=== PATIENT | female | born 1965 | race Caucasian/White ===

== ENCOUNTER 2019-04-27 03:58 | Inpatient (IN) | payer OTHER ==
[2019-04-27 04:13] LABS: URINE BLOOD (Dip) POC Negative (NEGATIVE); URINE GLUCOSE (Dip) POC Negative (NEGATIVE); URINE KETONES (Dip) POC Negative (NEGATIVE); URINE LEUKOCYTE EST (Dip) POC Negative (NEGATIVE); URINE NITRITE (Dip) POC Negative (NEGATIVE); URINE TOTAL PROTEIN POC Negative (NEGATIVE)
[2019-04-27 04:13] LABS: URINE PH (Dip) POC 8.5 (5.0-8.5)
[2019-04-27] MEDS: ONDANSETRON 4 MG INJ IV (04:25)
[2019-04-27] MEDS: morphine 2 MG INJ IV ×3 (04:25→08:54)
[2019-04-27 04:36] LABS: ADD MAN DIFF? NO
[2019-04-27 04:37] LABS: BASOPHILS % 0.5 % (0.0-2.0); EOSINOPHILS # 0.1 10^3/ul (0.0-0.5); EOSINOPHILS % 2.1 % (0.0-7.0); HEMATOCRIT 40.2 % (37.0-47.0); LYMPHOCYTES # 2.7 10^3/ul (0.8-2.9); LYMPHOCYTES % 40.8 % (15.0-51.0); MEAN CORPUSCULAR HEMOGLOBIN 30.1 pg (29.0-33.0); MEAN CORPUSCULAR HGB CONC 32.3 g/dl (32.0-37.0); MEAN CORPUSCULAR VOLUME 93.1 fl (82.0-101.0); MEAN PLATELET VOLUME 10.1 fl (7.4-10.4); MONOCYTE # 0.5 10^3/ul (0.3-0.9); MONOCYTES % 7.3 % (0.0-11.0); NEUTROPHIL # 3.3 10^3/ul (1.6-7.5); NEUTROPHILS % 49.1 % (39.0-77.0); PLATELET COUNT 347 10^3/UL (140-415); RED BLOOD COUNT 4.32 10^6/ul (4.20-5.40); RED CELL DISTRIBUTION WIDTH 12.8 % (11.5-14.5)
[2019-04-27 04:37] LABS: WHITE BLOOD COUNT 6.6 10^3/ul (4.8-10.8)
[2019-04-27 04:54] LABS: ALANINE AMINOTRANSFERASE 83 IU/L (13-69); ALBUMIN 4.3 g/dl (3.3-4.9); ALBUMIN/GLOBULIN RATIO 1.26; ALKALINE PHOSPHATASE 96 IU/L (42-121); ANION GAP 11 (5-13); ASPARTATE AMINO TRANSFERASE 94 IU/L (15-46); BILIRUBIN,INDIRECT 0.4 mg/dl (0-1.1); BILIRUBIN,TOTAL 0.4 mg/dl (0.2-1.3); BLOOD UREA NITROGEN 21 mg/dl (7-20); CALCIUM 9.3 mg/dl (8.4-10.2); CARBON DIOXIDE 26 mmol/L (21-31); CHLORIDE 108 mmol/L (97-110); CREATININE 0.56 mg/dl (0.44-1.00); Estimated GFR > 60 mL/min (>60); GLUCOSE 110 mg/dl (70-220); POTASSIUM 3.4 mmol/L (3.5-5.1); SODIUM 145 mmol/L (135-144); TOTAL PROTEIN 7.7 g/dl (6.1-8.1)
[2019-04-27] MEDS: SOD CHLORIDE 0.9% 1,000 ML IV ×6 (04:59→23:40)
[2019-04-27 05:23] LABS: LIPASE 10488 U/L (23-300)
[2019-04-27] MEDS: POTASSIUM CHLORIDE 100 ML IVPB (05:52)
[2019-04-27] MEDS: METOCLOPRAMIDE 10 MG INJ IV (05:52)
[2019-04-27] MEDS: HYDROmorphONE 1 MG/ML SYG IV ×3 (05:53→19:37)
[2019-04-27] MEDS ORDERED: BISACODYL (EC) 5 MG TAB PO (06:00)
[2019-04-27] MEDS ORDERED: NACL 0.9% 3 ML SYG IV (06:00)
[2019-04-27] MEDS ORDERED: DOCUSATE SODIUM 100 MG CAP PO (06:00)
[2019-04-27] MEDS ORDERED: ACETAMINOPHEN 325 MG TAB PO (06:00)
[2019-04-27 06:28] LABS: HAAIG REFLEX REFLEX FILED
[2019-04-27] MEDS: POTASSIUM CHLORIDE (SR) 20 MEQ TAB PO (06:45)
[2019-04-27 06:51] LABS: INR 0.89; PROTIME 12.1 Sec (11.9-14.9); PT RATIO 0.9
[2019-04-27 06:52] LABS: PARTIAL THROMBOPLASTIN TIME 30.3 Sec (23.0-35.0)
[2019-04-27 06:57] LABS: ETHANOL < 10.0 mg/dl (0-0)
[2019-04-27] MEDS ORDERED: ALBUTEROL HFA 8 GM INHALER INH (07:00)
[2019-04-27 07:13] LABS: CHOLESTEROL 136 mg/dl (100-200)
[2019-04-27 07:13] LABS: CHOL/HDL RATIO 3.6 RATIO; HDL CHOLESTEROL 37 mg/dl (37-92); LDL CHOLESTEROL,CALCULATED 85 mg/dl; TRIGLYCERIDES 71 mg/dl (0-149)
[2019-04-27 07:28] LABS: HEPATITIS B SURFACE ANTIGEN NEGATIVE (NEGATIVE)
[2019-04-27 07:46] LABS: HEPATITIS B CORE ANTIBODY NEGATIVE (NEGATIVE); HEPATITIS C VIRAL ANTIBODY NEGATIVE (NEGATIVE)
[2019-04-27] MEDS: LOSARTAN 50 MG TAB PO (08:53)
[2019-04-27] MEDS: PANTOPRAZOLE (EC) 40 MG TAB PO (08:53)
[2019-04-27] MEDS ORDERED: RANITIDINE 150 MG TAB PO (09:00)
[2019-04-27] MEDS ORDERED: NON-FORMULARY/PATIENT OWN MED (Omeprazole* 40 MG) PO (09:00)
[2019-04-28] MEDS: HYDROmorphONE 1 MG/ML SYG IV ×2 (04:48→19:18)
[2019-04-28] MEDS: SOD CHLORIDE 0.9% 1,000 ML IV ×5 (04:48→22:45)
[2019-04-28 05:01] LABS: ADD MAN DIFF? NO
[2019-04-28 05:15] LABS: BASOPHILS % 0.2 % (0.0-2.0); EOSINOPHILS # 0.1 10^3/ul (0.0-0.5); HEMATOCRIT 32.4 % (37.0-47.0); HEMOGLOBIN 10.6 g/dl (12.0-16.0); LYMPHOCYTES # 1.3 10^3/ul (0.8-2.9); LYMPHOCYTES % 22.3 % (15.0-51.0); MEAN CORPUSCULAR HEMOGLOBIN 30.9 pg (29.0-33.0); MEAN CORPUSCULAR HGB CONC 32.7 g/dl (32.0-37.0); MEAN CORPUSCULAR VOLUME 94.5 fl (82.0-101.0); MEAN PLATELET VOLUME 10.3 fl (7.4-10.4); MONOCYTE # 0.4 10^3/ul (0.3-0.9); MONOCYTES % 6.4 % (0.0-11.0); NEUTROPHILS % 69.8 % (39.0-77.0); PLATELET COUNT 267 10^3/UL (140-415); RED BLOOD COUNT 3.43 10^6/ul (4.20-5.40); RED CELL DISTRIBUTION WIDTH 13.1 % (11.5-14.5)
[2019-04-28 05:15] LABS: WHITE BLOOD COUNT 5.8 10^3/ul (4.8-10.8)
[2019-04-28 05:25] LABS: HEMOGLOBIN A1C 5.7 % (0-5.9)
[2019-04-28 05:58] LABS: THYROID STIMULATING HORMONE 0.743 MIU/L (0.465-4.680)
[2019-04-28] MEDS: PANTOPRAZOLE (EC) 40 MG TAB PO (06:00)
[2019-04-28 06:25] LABS: ALANINE AMINOTRANSFERASE 173 IU/L (13-69); ALBUMIN 3.1 g/dl (3.3-4.9); ALKALINE PHOSPHATASE 94 IU/L (42-121); ANION GAP 5 (5-13); ASPARTATE AMINO TRANSFERASE 87 IU/L (15-46); BILIRUBIN,INDIRECT 0.8 mg/dl (0-1.1); BILIRUBIN,TOTAL 0.8 mg/dl (0.2-1.3); BLOOD UREA NITROGEN 8 mg/dl (7-20); CALCIUM 8.3 mg/dl (8.4-10.2); CARBON DIOXIDE 20 mmol/L (21-31); CHLORIDE 116 mmol/L (97-110); CREATININE 0.47 mg/dl (0.44-1.00); Estimated GFR > 60 mL/min (>60); GLUCOSE 94 mg/dl (70-220); POTASSIUM 3.6 mmol/L (3.5-5.1); SODIUM 141 mmol/L (135-144); TOTAL PROTEIN 5.9 g/dl (6.1-8.1)
[2019-04-28 07:44] LABS: LIPASE 5061 U/L (23-300)
[2019-04-28] MEDS: LOSARTAN 50 MG TAB PO (08:37)
[2019-04-28] MEDS ORDERED: IOHEXOL 300MG/ML 30 ML BTL (11:12)
[2019-04-28] MEDS ORDERED: CEFAZOLIN 1 GM/50 ML (PMX) 50 ML IVPB (12:30)
[2019-04-28] MEDS ORDERED: MIDAZOLAM 1 MG/ML 2 ML INJ (12:34)
[2019-04-28] MEDS ORDERED: FENTAnyl 50 MCG/ML VIAL (12:34)
[2019-04-28] MEDS ORDERED: ROCURONIUM 50 MG INJ (13:48)
[2019-04-28] MEDS ORDERED: PROPOFOL 20 ML (13:48)
[2019-04-28] MEDS ORDERED: LIDOCAINE 2% (SDV) 5 ML INJ (13:48)
[2019-04-28] MEDS ORDERED: ONDANSETRON 4 MG INJ (13:48)
[2019-04-28] MEDS ORDERED: NEOSTIGMINE 3 MG/3 ML SYRINGE (13:52)
[2019-04-28] MEDS ORDERED: GLYCOPYRROLATE 0.4 MG INJ (13:52)
[2019-04-28 15:08] LABS: CARCINOEMBRYONIC ANTIGEN 1.9 ng/ml (0.0-5.0)
[2019-04-28 15:12] LABS: ALPHA FETOPROTEIN 5.27 IU/L (0.00-7.21)
[2019-04-28 15:12] LABS: CANCER ANTIGEN 19-9 15.9 U/ml (0.0-37.0)
[2019-04-28] MEDS: INDOMETHACIN 50 MG SUPP PR (20:58)
[2019-04-29] MEDS: SOD CHLORIDE 0.9% 1,000 ML IV ×7 (02:38→22:32)
[2019-04-29 05:13] LABS: ADD MAN DIFF? NO
[2019-04-29 05:23] LABS: BASOPHILS % 0.4 % (0.0-2.0); EOSINOPHILS % 0.7 % (0.0-7.0); HEMATOCRIT 32.1 % (37.0-47.0); HEMOGLOBIN 10.1 g/dl (12.0-16.0); LYMPHOCYTES # 1.3 10^3/ul (0.8-2.9); LYMPHOCYTES % 22.8 % (15.0-51.0); MEAN CORPUSCULAR HEMOGLOBIN 29.8 pg (29.0-33.0); MEAN CORPUSCULAR HGB CONC 31.5 g/dl (32.0-37.0); MEAN CORPUSCULAR VOLUME 94.7 fl (82.0-101.0); MEAN PLATELET VOLUME 10.6 fl (7.4-10.4); MONOCYTE # 0.4 10^3/ul (0.3-0.9); MONOCYTES % 7.4 % (0.0-11.0); NEUTROPHIL # 3.9 10^3/ul (1.6-7.5); NEUTROPHILS % 68.3 % (39.0-77.0); PLATELET COUNT 256 10^3/UL (140-415); RED BLOOD COUNT 3.39 10^6/ul (4.20-5.40); RED CELL DISTRIBUTION WIDTH 12.9 % (11.5-14.5)
[2019-04-29 05:23] LABS: WHITE BLOOD COUNT 5.7 10^3/ul (4.8-10.8)
[2019-04-29 05:44] LABS: ALANINE AMINOTRANSFERASE 108 IU/L (13-69); ALBUMIN 2.9 g/dl (3.3-4.9); ALKALINE PHOSPHATASE 96 IU/L (42-121); ANION GAP 9 (5-13); ASPARTATE AMINO TRANSFERASE 34 IU/L (15-46); BILIRUBIN,INDIRECT 0.4 mg/dl (0-1.1); BILIRUBIN,TOTAL 0.4 mg/dl (0.2-1.3); BLOOD UREA NITROGEN 7 mg/dl (7-20); CARBON DIOXIDE 19 mmol/L (21-31); CHLORIDE 117 mmol/L (97-110); Estimated GFR > 60 mL/min (>60); GLUCOSE 73 mg/dl (70-220); POTASSIUM 3.2 mmol/L (3.5-5.1); SODIUM 145 mmol/L (135-144); TOTAL PROTEIN 5.8 g/dl (6.1-8.1)
[2019-04-29 06:09] LABS: LIPASE 1622 U/L (23-300)
[2019-04-29] MEDS: PANTOPRAZOLE (EC) 40 MG TAB PO (06:55)
[2019-04-29] MEDS: LOSARTAN 50 MG TAB PO (08:25)
[2019-04-29] MEDS: POTASSIUM CHLORIDE (SR) 20 MEQ TAB PO (08:25)
[2019-04-29] MEDS: HYDROmorphONE 1 MG/ML SYG IV (20:31)
[2019-04-30] MEDS: SOD CHLORIDE 0.9% 1,000 ML IV ×5 (02:24→19:19)
[2019-04-30] MEDS: HYDROmorphONE 1 MG/ML SYG IV ×4 (03:30→22:36)
[2019-04-30 05:13] LABS: ADD MAN DIFF? NO
[2019-04-30 05:24] LABS: BASOPHILS % 0.3 % (0.0-2.0); EOSINOPHILS % 0.3 % (0.0-7.0); HEMATOCRIT 30.6 % (37.0-47.0); HEMOGLOBIN 10.2 g/dl (12.0-16.0); LYMPHOCYTES % 14.4 % (15.0-51.0); MEAN CORPUSCULAR HEMOGLOBIN 30.9 pg (29.0-33.0); MEAN CORPUSCULAR HGB CONC 33.3 g/dl (32.0-37.0); MEAN CORPUSCULAR VOLUME 92.7 fl (82.0-101.0); MEAN PLATELET VOLUME 10.7 fl (7.4-10.4); MONOCYTE # 0.5 10^3/ul (0.3-0.9); MONOCYTES % 7.4 % (0.0-11.0); NEUTROPHIL # 5.3 10^3/ul (1.6-7.5); NEUTROPHILS % 77.3 % (39.0-77.0); PLATELET COUNT 256 10^3/UL (140-415); RED CELL DISTRIBUTION WIDTH 12.2 % (11.5-14.5)
[2019-04-30 05:24] LABS: WHITE BLOOD COUNT 6.9 10^3/ul (4.8-10.8)
[2019-04-30 05:50] LABS: LIPASE 417 U/L (23-300)
[2019-04-30 06:09] LABS: ALANINE AMINOTRANSFERASE 78 IU/L (13-69); ALBUMIN/GLOBULIN RATIO 1.11; ALKALINE PHOSPHATASE 92 IU/L (42-121); ANION GAP 10 (5-13); ASPARTATE AMINO TRANSFERASE 22 IU/L (15-46); BILIRUBIN,INDIRECT 0.5 mg/dl (0-1.1); BILIRUBIN,TOTAL 0.5 mg/dl (0.2-1.3); BLOOD UREA NITROGEN 3 mg/dl (7-20); CARBON DIOXIDE 18 mmol/L (21-31); CHLORIDE 110 mmol/L (97-110); CREATININE 0.38 mg/dl (0.44-1.00); Estimated GFR > 60 mL/min (>60); GLUCOSE 76 mg/dl (70-220); SODIUM 138 mmol/L (135-144); TOTAL PROTEIN 5.7 g/dl (6.1-8.1)
[2019-04-30] MEDS: PANTOPRAZOLE (EC) 40 MG TAB PO (06:20)
[2019-04-30 06:48] LABS: POTASSIUM 2.9 mmol/L (3.5-5.1)
[2019-04-30] MEDS: POTASSIUM CHLORIDE (SR) 20 MEQ TAB PO (07:28)
[2019-04-30] MEDS: LOSARTAN 50 MG TAB PO (09:24)
[2019-05-01] MEDS: HYDROmorphONE 1 MG/ML SYG IV ×4 (02:23→20:10)
[2019-05-01] MEDS: SOD CHLORIDE 0.9% 1,000 ML IV ×3 (03:28→20:10)
[2019-05-01] MEDS: PANTOPRAZOLE (EC) 40 MG TAB PO (05:38)
[2019-05-01 06:11] LABS: ADD MAN DIFF? NO
[2019-05-01 06:12] LABS: BASOPHILS % 0.2 % (0.0-2.0); EOSINOPHILS % 0.5 % (0.0-7.0); HEMATOCRIT 32.6 % (37.0-47.0); LYMPHOCYTES # 1.3 10^3/ul (0.8-2.9); LYMPHOCYTES % 14.9 % (15.0-51.0); MEAN CORPUSCULAR HEMOGLOBIN 30.7 pg (29.0-33.0); MEAN CORPUSCULAR HGB CONC 33.7 g/dl (32.0-37.0); MEAN CORPUSCULAR VOLUME 91.1 fl (82.0-101.0); MEAN PLATELET VOLUME 10.5 fl (7.4-10.4); MONOCYTE # 0.7 10^3/ul (0.3-0.9); MONOCYTES % 8.3 % (0.0-11.0); NEUTROPHIL # 6.6 10^3/ul (1.6-7.5); NEUTROPHILS % 75.8 % (39.0-77.0); PLATELET COUNT 313 10^3/UL (140-415); RED BLOOD COUNT 3.58 10^6/ul (4.20-5.40); RED CELL DISTRIBUTION WIDTH 12.3 % (11.5-14.5)
[2019-05-01 06:12] LABS: WHITE BLOOD COUNT 8.7 10^3/ul (4.8-10.8)
[2019-05-01 06:54] LABS: ANION GAP 12 (5-13); BLOOD UREA NITROGEN 2 mg/dl (7-20); CALCIUM 7.9 mg/dl (8.4-10.2); CARBON DIOXIDE 22 mmol/L (21-31); CHLORIDE 105 mmol/L (97-110); CREATININE 0.36 mg/dl (0.44-1.00); Estimated GFR > 60 mL/min (>60); GLUCOSE 62 mg/dl (70-220); LIPASE 127 U/L (23-300); POTASSIUM 3.1 mmol/L (3.5-5.1); SODIUM 139 mmol/L (135-144)
[2019-05-01 07:14] LABS: ALBUMIN/GLOBULIN RATIO 1.17; ANION GAP 11 (5-13); BILIRUBIN,TOTAL 0.6 mg/dl (0.2-1.3); Estimated GFR > 60 mL/min (>60)
[2019-05-01 07:23] LABS: ALANINE AMINOTRANSFERASE 59 IU/L (13-69); ALBUMIN 3.3 g/dl (3.3-4.9); ALKALINE PHOSPHATASE 92 IU/L (42-121); ASPARTATE AMINO TRANSFERASE 23 IU/L (15-46); BILIRUBIN,INDIRECT 0.6 mg/dl (0-1.1); BLOOD UREA NITROGEN 2 mg/dl (7-20); CALCIUM 8.3 mg/dl (8.4-10.2); CARBON DIOXIDE 21 mmol/L (21-31); CHLORIDE 106 mmol/L (97-110); CREATININE 0.42 mg/dl (0.44-1.00); GLUCOSE 65 mg/dl (70-220); SODIUM 138 mmol/L (135-144); TOTAL PROTEIN 6.1 g/dl (6.1-8.1)
[2019-05-01 07:24] LABS: POTASSIUM 2.9 mmol/L (3.5-5.1)
[2019-05-01] MEDS: LOSARTAN 50 MG TAB PO (08:09)
[2019-05-01] MEDS: POTASSIUM CHLORIDE (SR) 20 MEQ TAB PO ×2 (08:09→12:10)
[2019-05-01] MEDS: ONDANSETRON 4 MG INJ IV (14:28)
[2019-05-02] MEDS: HYDROmorphONE 1 MG/ML SYG IV ×4 (01:04→14:44)
[2019-05-02] MEDS: PANTOPRAZOLE (EC) 40 MG TAB PO (05:06)
[2019-05-02] MEDS: SOD CHLORIDE 0.9% 1,000 ML IV ×3 (05:08→14:42)
[2019-05-02] MEDS: LOSARTAN 50 MG TAB PO (08:42)
[2019-05-02 15:35] LABS: ADD MAN DIFF? NO
[2019-05-02 15:38] LABS: WHITE BLOOD COUNT 8.3 10^3/ul (4.8-10.8)
[2019-05-02 15:38] LABS: BASOPHILS % 0.4 % (0.0-2.0); EOSINOPHILS # 0.1 10^3/ul (0.0-0.5); EOSINOPHILS % 1.2 % (0.0-7.0); HEMATOCRIT 38.4 % (37.0-47.0); HEMOGLOBIN 12.4 g/dl (12.0-16.0); LYMPHOCYTES % 12.1 % (15.0-51.0); MEAN CORPUSCULAR HEMOGLOBIN 30.1 pg (29.0-33.0); MEAN CORPUSCULAR HGB CONC 32.3 g/dl (32.0-37.0); MEAN CORPUSCULAR VOLUME 93.2 fl (82.0-101.0); MEAN PLATELET VOLUME 9.9 fl (7.4-10.4); MONOCYTE # 0.4 10^3/ul (0.3-0.9); NEUTROPHIL # 6.7 10^3/ul (1.6-7.5); NEUTROPHILS % 80.9 % (39.0-77.0); PLATELET COUNT 380 10^3/UL (140-415); RED BLOOD COUNT 4.12 10^6/ul (4.20-5.40); RED CELL DISTRIBUTION WIDTH 12.6 % (11.5-14.5)
[2019-05-02 15:55] LABS: ANION GAP 16 (5-13); BLOOD UREA NITROGEN 5 mg/dl (7-20); CALCIUM 8.6 mg/dl (8.4-10.2); CARBON DIOXIDE 18 mmol/L (21-31); CHLORIDE 108 mmol/L (97-110); CREATININE 0.38 mg/dl (0.44-1.00); Estimated GFR > 60 mL/min (>60); GLUCOSE 59 mg/dl (70-220); POTASSIUM 3.5 mmol/L (3.5-5.1); SODIUM 142 mmol/L (135-144)
[2019-05-02] MEDS: DEXTROSE 5%-0.45% NACL 1,000 ML IV (16:23)
[2019-05-02] MEDS: morphine 2 MG INJ IV (20:22)
[2019-05-02] MEDS: morphine 4 MG/ML VIAL IV (22:00)
[2019-05-03] MEDS: morphine 4 MG/ML VIAL IV (02:43)
[2019-05-03 06:02] LABS: ADD MAN DIFF? NO
[2019-05-03 06:05] LABS: BASOPHILS % 0.3 % (0.0-2.0); EOSINOPHILS # 0.2 10^3/ul (0.0-0.5); EOSINOPHILS % 2.5 % (0.0-7.0); HEMATOCRIT 32.8 % (37.0-47.0); HEMOGLOBIN 10.9 g/dl (12.0-16.0); LYMPHOCYTES # 1.3 10^3/ul (0.8-2.9); LYMPHOCYTES % 18.2 % (15.0-51.0); MEAN CORPUSCULAR HEMOGLOBIN 30.2 pg (29.0-33.0); MEAN CORPUSCULAR HGB CONC 33.2 g/dl (32.0-37.0); MEAN CORPUSCULAR VOLUME 90.9 fl (82.0-101.0); MEAN PLATELET VOLUME 10.3 fl (7.4-10.4); MONOCYTE # 0.5 10^3/ul (0.3-0.9); MONOCYTES % 7.5 % (0.0-11.0); NEUTROPHIL # 5.1 10^3/ul (1.6-7.5); NEUTROPHILS % 71.2 % (39.0-77.0); PLATELET COUNT 375 10^3/UL (140-415); RED BLOOD COUNT 3.61 10^6/ul (4.20-5.40); RED CELL DISTRIBUTION WIDTH 12.6 % (11.5-14.5)
[2019-05-03 06:05] LABS: WHITE BLOOD COUNT 7.2 10^3/ul (4.8-10.8)
[2019-05-03] MEDS: PANTOPRAZOLE (EC) 40 MG TAB PO (06:07)
[2019-05-03] MEDS: DEXTROSE 5%-0.45% NACL 1,000 ML IV ×2 (06:07→21:21)
[2019-05-03 06:31] LABS: ANION GAP 11 (5-13); BLOOD UREA NITROGEN 3 mg/dl (7-20); CALCIUM 8.4 mg/dl (8.4-10.2); CARBON DIOXIDE 23 mmol/L (21-31); CHLORIDE 107 mmol/L (97-110); CREATININE 0.42 mg/dl (0.44-1.00); Estimated GFR > 60 mL/min (>60); GLUCOSE 106 mg/dl (70-220); POTASSIUM 3.2 mmol/L (3.5-5.1); SODIUM 141 mmol/L (135-144)
[2019-05-03 06:32] LABS: MAGNESIUM 1.8 mg/dl (1.7-2.5)
[2019-05-03 06:32] LABS: PHOSPHORUS 3.2 mg/dl (2.5-4.9)
[2019-05-03] MEDS: LOSARTAN 50 MG TAB PO (08:39)
[2019-05-03 13:06] LABS: LIPASE 47 U/L (23-300)
[2019-05-04] MEDS: PANTOPRAZOLE (EC) 40 MG TAB PO (06:17)
[2019-05-04] MEDS: LOSARTAN 50 MG TAB PO (08:44)
[2019-05-04] MEDS: POTASSIUM CHLORIDE (SR) 20 MEQ TAB PO (12:06)
== END 2019-05-04 16:15 | disposition home or self-care (01) | DRG 439 ==
LOC: E/R 03:58 → MS1 05:47
PROVIDERS: Family Medicine
PROC: 0F798DZ Dilation of Common Bile Duct with Intraluminal Device, Via Natural or Artificial Opening Endoscopic (ICD-10-PCS; principal; 2019-04-28 11:40)
PROC: 0F7D8DZ Dilation of Pancreatic Duct with Intraluminal Device, Via Natural or Artificial Opening Endoscopic (ICD-10-PCS; 2019-04-28 11:40)
DX: K85.10 Biliary acute pancreatitis without necrosis or infection (principal); K80.51 Calculus of bile duct without cholangitis or cholecystitis with obstruction; I10 Essential (primary) hypertension; J45.909 Unspecified asthma, uncomplicated; K21.9 Gastro-esophageal reflux disease without esophagitis; E78.5 Hyperlipidemia, unspecified; E66.9 Obesity, unspecified; Z68.30 Body mass index [BMI] 30.0-30.9, adult; G43.909 Migraine, unspecified, not intractable, without status migrainosus
CPT/HCPCS: 36415; 74176; 74181; 74330; 76705; 80048; 80053; 80061; 80307; 81003; 81025; 82105; 82306; 82378; 83036; 83690; 83735; 84100; 84443; 85025; 85610; 85730; 86301; 86704; 86709; 86803; 87340; 88104; 88305; 96374; 96375; 96376; 99285-25

== ENCOUNTER 2019-05-20 00:42 | Inpatient (IN) | payer OTHER ==
[2019-05-20 03:49] LABS: ADD MAN DIFF? NO
[2019-05-20 04:00] LABS: ADD UMIC NO; UR ASCORBIC ACID NEGATIVE (NEGATIVE); UR BILIRUBIN (Dip) NEGATIVE (NEGATIVE); UR BLOOD (Dip) NEGATIVE (NEGATIVE); UR CLARITY CLEAR (CLEAR); UR COLOR COLORLESS (YELLOW); UR GLUCOSE (Dip) NEGATIVE (NEGATIVE); UR KETONES (Dip) NEGATIVE (NEGATIVE); UR LEUKOCYTE ESTERASE (Dip) NEGATIVE Leu/ul (NEGATIVE); UR NITRITE (Dip) NEGATIVE (NEGATIVE); UR SPECIFIC GRAVITY (Dip) 1.004 (1.003-1.030); UR TOTAL PROTEIN (Dip) NEGATIVE (NEGATIVE); UR UROBILINOGEN (Dip) NEGATIVE (NEGATIVE)
[2019-05-20 04:06] LABS: BASOPHILS % 0.5 % (0.0-2.0); EOSINOPHILS # 0.2 10^3/ul (0.0-0.5); EOSINOPHILS % 2.7 % (0.0-7.0); HEMATOCRIT 39.8 % (37.0-47.0); LYMPHOCYTES # 2.3 10^3/ul (0.8-2.9); LYMPHOCYTES % 35.3 % (15.0-51.0); MEAN CORPUSCULAR HEMOGLOBIN 29.8 pg (29.0-33.0); MEAN CORPUSCULAR HGB CONC 32.7 g/dl (32.0-37.0); MEAN CORPUSCULAR VOLUME 91.3 fl (82.0-101.0); MEAN PLATELET VOLUME 10.1 fl (7.4-10.4); MONOCYTE # 0.5 10^3/ul (0.3-0.9); MONOCYTES % 6.8 % (0.0-11.0); NEUTROPHIL # 3.6 10^3/ul (1.6-7.5); NEUTROPHILS % 54.4 % (39.0-77.0); PLATELET COUNT 383 10^3/UL (140-415); RED BLOOD COUNT 4.36 10^6/ul (4.20-5.40); RED CELL DISTRIBUTION WIDTH 12.7 % (11.5-14.5)
[2019-05-20 04:06] LABS: WHITE BLOOD COUNT 6.6 10^3/ul (4.8-10.8)
[2019-05-20] MEDS: ONDANSETRON 4 MG INJ IV (04:09)
[2019-05-20] MEDS: morphine 4 MG/ML VIAL IV (04:09)
[2019-05-20 04:10] LABS: ALANINE AMINOTRANSFERASE 38 IU/L (13-69); ALBUMIN 4.4 g/dl (3.3-4.9); ALBUMIN/GLOBULIN RATIO 1.22; ALKALINE PHOSPHATASE 99 IU/L (42-121); ANION GAP 12 (5-13); ASPARTATE AMINO TRANSFERASE 24 IU/L (15-46); BILIRUBIN,INDIRECT 0.4 mg/dl (0-1.1); BILIRUBIN,TOTAL 0.4 mg/dl (0.2-1.3); BLOOD UREA NITROGEN 18 mg/dl (7-20); CALCIUM 9.7 mg/dl (8.4-10.2); CARBON DIOXIDE 29 mmol/L (21-31); CHLORIDE 103 mmol/L (97-110); CREATININE 0.59 mg/dl (0.44-1.00); Estimated GFR > 60 mL/min (>60); GLUCOSE 123 mg/dl (70-220); LIPASE 105 U/L (23-300); POTASSIUM 3.4 mmol/L (3.5-5.1); SODIUM 144 mmol/L (135-144)
[2019-05-20] MEDS: PIPER-TAZO 3.375 GM IV (PMX) 100 ML IVPB ×4 (05:51→23:25)
[2019-05-20] MEDS ORDERED: ACETAMINOPHEN 325 MG TAB PO ×2 (06:30→09:00)
[2019-05-20] MEDS ORDERED: ONDANSETRON 4 MG INJ IV (06:30)
[2019-05-20] MEDS: FENTAnyl 50 MCG/ML VIAL IV (07:22)
[2019-05-20] MEDS: morphine 2 MG INJ IV ×3 (08:56→21:04)
[2019-05-20] MEDS ORDERED: HYDROCODONE/APAP (5/325) TAB PO (09:00)
[2019-05-20] MEDS ORDERED: NACL 0.9% 3 ML SYG IV (09:00)
[2019-05-20] MEDS ORDERED: ALBUTEROL/IPRATROPIUM (NEB) 3 ML AMP HHN (09:30)
[2019-05-20] MEDS: DEXTROSE 5%-0.45% NACL 1,000 ML IV ×2 (09:34→18:41)
[2019-05-20] MEDS: POTASSIUM CHLORIDE 100 ML IVPB ×2 (11:15→16:54)
[2019-05-20] MEDS: ALBUTEROL/IPRATROPIUM (NEB) 3 ML AMP HHN ×2 (14:44→21:59)
[2019-05-21] MEDS: DEXTROSE 5%-0.45% NACL 1,000 ML IV ×3 (04:41→18:53)
[2019-05-21] MEDS: PANTOPRAZOLE 40 MG INJ IV (05:55)
[2019-05-21] MEDS: PIPER-TAZO 3.375 GM IV (PMX) 100 ML IVPB ×4 (05:56→23:25)
[2019-05-21 06:06] LABS: ADD MAN DIFF? NO
[2019-05-21 06:14] LABS: WHITE BLOOD COUNT 5.2 10^3/ul (4.8-10.8)
[2019-05-21 06:14] LABS: BASOPHILS % 0.6 % (0.0-2.0); EOSINOPHILS # 0.2 10^3/ul (0.0-0.5); EOSINOPHILS % 3.1 % (0.0-7.0); HEMATOCRIT 37.1 % (37.0-47.0); HEMOGLOBIN 11.9 g/dl (12.0-16.0); LYMPHOCYTES # 1.7 10^3/ul (0.8-2.9); LYMPHOCYTES % 32.3 % (15.0-51.0); MEAN CORPUSCULAR HEMOGLOBIN 29.3 pg (29.0-33.0); MEAN CORPUSCULAR HGB CONC 32.1 g/dl (32.0-37.0); MEAN CORPUSCULAR VOLUME 91.4 fl (82.0-101.0); MEAN PLATELET VOLUME 10.1 fl (7.4-10.4); MONOCYTE # 0.4 10^3/ul (0.3-0.9); MONOCYTES % 8.1 % (0.0-11.0); NEUTROPHIL # 2.9 10^3/ul (1.6-7.5); NEUTROPHILS % 55.5 % (39.0-77.0); PLATELET COUNT 339 10^3/UL (140-415); RED BLOOD COUNT 4.06 10^6/ul (4.20-5.40); RED CELL DISTRIBUTION WIDTH 12.9 % (11.5-14.5)
[2019-05-21 06:37] LABS: ALANINE AMINOTRANSFERASE 37 IU/L (13-69); ALBUMIN 3.3 g/dl (3.3-4.9); ALKALINE PHOSPHATASE 81 IU/L (42-121); ASPARTATE AMINO TRANSFERASE 27 IU/L (15-46); BILIRUBIN,INDIRECT 0.6 mg/dl (0-1.1); BILIRUBIN,TOTAL 0.6 mg/dl (0.2-1.3); TOTAL PROTEIN 6.1 g/dl (6.1-8.1)
[2019-05-21 06:37] LABS: HEMOGLOBIN A1C 5.3 % (0-5.9)
[2019-05-21 06:52] LABS: ALANINE AMINOTRANSFERASE 38 IU/L (13-69); ALBUMIN 3.5 g/dl (3.3-4.9); ALKALINE PHOSPHATASE 83 IU/L (42-121); ANION GAP 8 (5-13); ASPARTATE AMINO TRANSFERASE 28 IU/L (15-46); BILIRUBIN,INDIRECT 0.6 mg/dl (0-1.1); BILIRUBIN,TOTAL 0.6 mg/dl (0.2-1.3); BLOOD UREA NITROGEN 12 mg/dl (7-20); CARBON DIOXIDE 25 mmol/L (21-31); CHLORIDE 111 mmol/L (97-110); CHOL/HDL RATIO 5.8 RATIO; CHOLESTEROL 147 mg/dl (100-200); CREATININE 0.65 mg/dl (0.44-1.00); Estimated GFR > 60 mL/min (>60); GLUCOSE 118 mg/dl (70-220); HDL CHOLESTEROL 25 mg/dl (37-92); LDL CHOLESTEROL,CALCULATED 95 mg/dl; MAGNESIUM 2.2 mg/dl (1.7-2.5); POTASSIUM 3.7 mmol/L (3.5-5.1); SODIUM 144 mmol/L (135-144); TOTAL PROTEIN 6.4 g/dl (6.1-8.1); TRIGLYCERIDES 136 mg/dl (0-149)
[2019-05-21] MEDS: ALBUTEROL/IPRATROPIUM (NEB) 3 ML AMP HHN ×3 (08:17→20:28)
[2019-05-21] MEDS: morphine 2 MG INJ IV ×2 (10:03→21:49)
[2019-05-22] MEDS: PIPER-TAZO 3.375 GM IV (PMX) 100 ML IVPB ×3 (05:30→17:39)
[2019-05-22] MEDS: DEXTROSE 5%-0.45% NACL 1,000 ML IV ×3 (05:30→19:45)
[2019-05-22 05:54] LABS: ADD MAN DIFF? NO
[2019-05-22 05:56] LABS: WHITE BLOOD COUNT 4.5 10^3/ul (4.8-10.8)
[2019-05-22 05:56] LABS: BASOPHILS % 0.7 % (0.0-2.0); EOSINOPHILS # 0.2 10^3/ul (0.0-0.5); EOSINOPHILS % 5.1 % (0.0-7.0); HEMATOCRIT 35.2 % (37.0-47.0); HEMOGLOBIN 11.6 g/dl (12.0-16.0); LYMPHOCYTES # 1.8 10^3/ul (0.8-2.9); LYMPHOCYTES % 38.6 % (15.0-51.0); MEAN CORPUSCULAR HEMOGLOBIN 29.7 pg (29.0-33.0); MEAN CORPUSCULAR VOLUME 90.3 fl (82.0-101.0); MONOCYTE # 0.4 10^3/ul (0.3-0.9); MONOCYTES % 8.6 % (0.0-11.0); NEUTROPHIL # 2.1 10^3/ul (1.6-7.5); NEUTROPHILS % 46.8 % (39.0-77.0); PLATELET COUNT 337 10^3/UL (140-415); RED CELL DISTRIBUTION WIDTH 13.1 % (11.5-14.5)
[2019-05-22 06:23] LABS: ALANINE AMINOTRANSFERASE 42 IU/L (13-69); ALBUMIN 3.4 g/dl (3.3-4.9); ALBUMIN/GLOBULIN RATIO 1.13; ALKALINE PHOSPHATASE 77 IU/L (42-121); ANION GAP 7 (5-13); ASPARTATE AMINO TRANSFERASE 29 IU/L (15-46); BILIRUBIN,INDIRECT 0.6 mg/dl (0-1.1); BILIRUBIN,TOTAL 0.6 mg/dl (0.2-1.3); BLOOD UREA NITROGEN 7 mg/dl (7-20); CARBON DIOXIDE 23 mmol/L (21-31); CHLORIDE 116 mmol/L (97-110); CREATININE 0.56 mg/dl (0.44-1.00); Estimated GFR > 60 mL/min (>60); GLUCOSE 144 mg/dl (70-220); MAGNESIUM 2.2 mg/dl (1.7-2.5); POTASSIUM 3.6 mmol/L (3.5-5.1); SODIUM 146 mmol/L (135-144); TOTAL PROTEIN 6.4 g/dl (6.1-8.1)
[2019-05-22] MEDS: ALBUTEROL/IPRATROPIUM (NEB) 3 ML AMP HHN ×3 (07:52→19:17)
[2019-05-22] MEDS: FAMOTIDINE 20 MG INJ IV ×2 (09:54→20:49)
[2019-05-22] MEDS: POTASSIUM CHLORIDE 100 ML IVPB ×2 (12:07→15:03)
[2019-05-22] MEDS: TOPIRAMATE 100 MG TAB PO (20:49)
[2019-05-22] MEDS: morphine 2 MG INJ IV (21:45)
[2019-05-23] MEDS: PIPER-TAZO 3.375 GM IV (PMX) 100 ML IVPB ×4 (00:17→18:00)
[2019-05-23 05:47] LABS: ADD MAN DIFF? NO
[2019-05-23 05:52] LABS: BASOPHILS % 0.6 % (0.0-2.0); EOSINOPHILS # 0.3 10^3/ul (0.0-0.5); HEMATOCRIT 34.8 % (37.0-47.0); HEMOGLOBIN 11.4 g/dl (12.0-16.0); LYMPHOCYTES % 38.9 % (15.0-51.0); MEAN CORPUSCULAR HGB CONC 32.8 g/dl (32.0-37.0); MEAN CORPUSCULAR VOLUME 91.6 fl (82.0-101.0); MEAN PLATELET VOLUME 10.1 fl (7.4-10.4); MONOCYTE # 0.4 10^3/ul (0.3-0.9); MONOCYTES % 8.3 % (0.0-11.0); NEUTROPHIL # 2.4 10^3/ul (1.6-7.5); PLATELET COUNT 331 10^3/UL (140-415); RED CELL DISTRIBUTION WIDTH 12.9 % (11.5-14.5)
[2019-05-23 05:52] LABS: WHITE BLOOD COUNT 5.2 10^3/ul (4.8-10.8)
[2019-05-23 06:15] LABS: ALANINE AMINOTRANSFERASE 51 IU/L (13-69); ALBUMIN 3.5 g/dl (3.3-4.9); ALBUMIN/GLOBULIN RATIO 1.25; ALKALINE PHOSPHATASE 75 IU/L (42-121); ANION GAP 8 (5-13); ASPARTATE AMINO TRANSFERASE 37 IU/L (15-46); BILIRUBIN,INDIRECT 0.6 mg/dl (0-1.1); BILIRUBIN,TOTAL 0.6 mg/dl (0.2-1.3); BLOOD UREA NITROGEN 4 mg/dl (7-20); CARBON DIOXIDE 24 mmol/L (21-31); CHLORIDE 114 mmol/L (97-110); CREATININE 0.64 mg/dl (0.44-1.00); Estimated GFR > 60 mL/min (>60); GLUCOSE 125 mg/dl (70-220); MAGNESIUM 2.1 mg/dl (1.7-2.5); POTASSIUM 3.7 mmol/L (3.5-5.1); SODIUM 146 mmol/L (135-144); TOTAL PROTEIN 6.3 g/dl (6.1-8.1)
[2019-05-23] MEDS: ALBUTEROL/IPRATROPIUM (NEB) 3 ML AMP HHN ×3 (07:50→19:19)
[2019-05-23] MEDS: FAMOTIDINE 20 MG INJ IV ×2 (08:43→20:45)
[2019-05-23] MEDS: D5W-0.45 NACL + KCL 20 MEQ 1,000 ML IV ×3 (10:56→19:06)
[2019-05-23] MEDS ORDERED: LIDOCAINE 1% (MPF) 30 ML INJ (15:51)
[2019-05-23] MEDS ORDERED: BUPIVACAINE 0.5%/EPI (SDV) 30 ML INJ (15:51)
[2019-05-23] MEDS ORDERED: PROPOFOL 20 ML (16:01)
[2019-05-23] MEDS ORDERED: ROCURONIUM 50 MG INJ (16:01)
[2019-05-23] MEDS ORDERED: GLYCOPYRROLATE 0.4 MG INJ (16:01)
[2019-05-23] MEDS ORDERED: NEOSTIGMINE 3 MG/3 ML SYRINGE (16:01)
[2019-05-23] MEDS ORDERED: CEFAZOLIN 1 GM INJ (16:01)
[2019-05-23] MEDS ORDERED: FENTAnyl 50 MCG/ML VIAL ×2 (16:02→16:37)
[2019-05-23] MEDS ORDERED: ONDANSETRON 4 MG INJ (16:02)
[2019-05-23] MEDS ORDERED: MIDAZOLAM 1 MG/ML 2 ML INJ (16:02)
[2019-05-23] MEDS ORDERED: DEXAMETHASONE 4 MG/ML 5 ML INJ (16:02)
[2019-05-23] MEDS ORDERED: EPHEDrine 25 MG/5 ML SYG IV (16:30)
[2019-05-23] MEDS ORDERED: OXYCODONE/ACETAMINOPHEN (5/325) TAB PO ×2 (16:30)
[2019-05-23] MEDS ORDERED: MIDAZOLAM 1 MG/ML 2 ML INJ IV (16:30)
[2019-05-23] MEDS ORDERED: ONDANSETRON 4 MG INJ IV ×2 (16:30→17:00)
[2019-05-23] MEDS ORDERED: ALBUTEROL 0.083% (NEB) 2.5 MG/3 ML AMP HHN (16:30)
[2019-05-23] MEDS ORDERED: DIPHENHYDRAMINE 50 MG INJ IV (16:30)
[2019-05-23] MEDS ORDERED: IPRATROPIUM (NEB) 0.5 MG/2.5 ML AMP HHN (16:30)
[2019-05-23] MEDS ORDERED: MEPERIDINE 25 MG INJ IV (16:30)
[2019-05-23] MEDS ORDERED: TRIMETHOBENZAMIDE 100 MG/ML VIAL IM (16:30)
[2019-05-23] MEDS ORDERED: FENTAnyl 50 MCG/ML VIAL IV ×2 (16:30)
[2019-05-23] MEDS ORDERED: HYDROmorphONE 1 MG/5 ML IV SYRINGE IV ×2 (16:30)
[2019-05-23] MEDS ORDERED: LABETALOL HCL 20MG INJ IV (16:30)
[2019-05-23] MEDS ORDERED: ROPIVACAINE 0.5 % 30 ML VIAL (16:53)
[2019-05-23] MEDS ORDERED: morphine 2 MG INJ IV (17:00)
[2019-05-23] MEDS ORDERED: ACETAMINOPHEN 325 MG TAB PO (17:00)
[2019-05-23] MEDS ORDERED: DIPHENHYDRAMINE 25 MG CAP PO (17:00)
[2019-05-23] MEDS ORDERED: KETOROLAC 30 MG INJ (17:07)
[2019-05-23] MEDS: LIDOCAINE 1% (MPF) 30 ML INJ INJ (17:30)
[2019-05-23] MEDS: BUPIVACAINE 0.5%/EPI (SDV) 30 ML INJ INJ (17:30)
[2019-05-23] MEDS: FENTAnyl 50 MCG/ML VIAL IV ×2 (18:02→18:15)
[2019-05-23] MEDS: hydrALAzine 20 MG INJ IV (18:22)
[2019-05-23] MEDS: HYDROmorphONE 1 MG/5 ML IV SYRINGE IV (18:33)
[2019-05-23] MEDS: TOPIRAMATE 100 MG TAB PO (20:45)
[2019-05-23] MEDS: morphine 2 MG INJ IV (20:46)
[2019-05-24] MEDS: PIPER-TAZO 3.375 GM IV (PMX) 100 ML IVPB ×2 (00:54→05:27)
[2019-05-24] MEDS: morphine 2 MG INJ IV ×4 (01:21→18:37)
[2019-05-24] MEDS: D5W-0.45 NACL + KCL 20 MEQ 1,000 ML IV ×3 (04:17→17:34)
[2019-05-24 06:24] LABS: BASOPHILS % 0.1 % (0.0-2.0); HEMOGLOBIN 11.9 g/dl (12.0-16.0); LYMPHOCYTES # 0.9 10^3/ul (0.8-2.9); LYMPHOCYTES % 12.4 % (15.0-51.0); MEAN CORPUSCULAR HEMOGLOBIN 30.1 pg (29.0-33.0); MEAN CORPUSCULAR HGB CONC 33.1 g/dl (32.0-37.0); MEAN CORPUSCULAR VOLUME 90.9 fl (82.0-101.0); MEAN PLATELET VOLUME 10.2 fl (7.4-10.4); MONOCYTE # 0.1 10^3/ul (0.3-0.9); MONOCYTES % 1.9 % (0.0-11.0); NEUTROPHIL # 5.8 10^3/ul (1.6-7.5); NEUTROPHILS % 85.2 % (39.0-77.0); PLATELET COUNT 339 10^3/UL (140-415); RED BLOOD COUNT 3.96 10^6/ul (4.20-5.40); RED CELL DISTRIBUTION WIDTH 12.9 % (11.5-14.5)
[2019-05-24 06:24] LABS: WHITE BLOOD COUNT 6.9 10^3/ul (4.8-10.8)
[2019-05-24 06:25] LABS: ADD MAN DIFF? NO
[2019-05-24 06:59] LABS: ALANINE AMINOTRANSFERASE 74 IU/L (13-69); ALBUMIN 3.6 g/dl (3.3-4.9); ALBUMIN/GLOBULIN RATIO 1.12; ALKALINE PHOSPHATASE 86 IU/L (42-121); ANION GAP 9 (5-13); ASPARTATE AMINO TRANSFERASE 61 IU/L (15-46); BILIRUBIN,INDIRECT 0.5 mg/dl (0-1.1); BILIRUBIN,TOTAL 0.5 mg/dl (0.2-1.3); BLOOD UREA NITROGEN 4 mg/dl (7-20); CALCIUM 9.1 mg/dl (8.4-10.2); CARBON DIOXIDE 23 mmol/L (21-31); CHLORIDE 112 mmol/L (97-110); CREATININE 0.51 mg/dl (0.44-1.00); Estimated GFR > 60 mL/min (>60); GLUCOSE 181 mg/dl (70-220); MAGNESIUM 1.9 mg/dl (1.7-2.5); POTASSIUM 4.4 mmol/L (3.5-5.1); SODIUM 144 mmol/L (135-144); TOTAL PROTEIN 6.8 g/dl (6.1-8.1)
[2019-05-24] MEDS: FAMOTIDINE 20 MG INJ IV ×2 (08:02→21:46)
[2019-05-24] MEDS: ONDANSETRON 4 MG INJ IV (08:19)
[2019-05-24] MEDS: ALBUTEROL/IPRATROPIUM (NEB) 3 ML AMP HHN ×4 (09:30→23:52)
[2019-05-24] MEDS: HYDROCODONE/APAP (5/325) TAB PO ×2 (11:22→17:34)
[2019-05-24] MEDS: DICLOFENAC SODIUM 1% GEL 100 GM TUBE TP (21:45)
[2019-05-24] MEDS: TOPIRAMATE 100 MG TAB PO (21:46)
[2019-05-24] MEDS: LIDOCAINE 5% PATCH TD (21:46)
[2019-05-24] MEDS: KETOROLAC 30 MG INJ IV (23:57)
[2019-05-25] MEDS: KETOROLAC 30 MG INJ IV ×2 (06:34→14:48)
[2019-05-25] MEDS: FAMOTIDINE 20 MG INJ IV (09:08)
[2019-05-25] MEDS: ALBUTEROL/IPRATROPIUM (NEB) 3 ML AMP HHN ×2 (09:13→15:22)
[2019-05-25] MEDS: HYDROCODONE/APAP (5/325) TAB PO (13:38)
[2019-05-25] MEDS: hydrALAzine 20 MG INJ IV (14:48)
== END 2019-05-25 16:15 | disposition home or self-care (01) | DRG 418 ==
LOC: 2NE 05-24 08:20 → E/R 00:42 → 2NE 06:13
PROC: 0FT44ZZ Resection of Gallbladder, Percutaneous Endoscopic Approach (ICD-10-PCS; principal; 2019-05-23 15:30)
PROC: BF12YZZ Fluoroscopy of Gallbladder using Other Contrast (ICD-10-PCS; 2019-05-23 15:30)
DX: K81.2 Acute cholecystitis with chronic cholecystitis (principal); K82.1 Hydrops of gallbladder; I10 Essential (primary) hypertension; J45.909 Unspecified asthma, uncomplicated; K21.9 Gastro-esophageal reflux disease without esophagitis; G43.909 Migraine, unspecified, not intractable, without status migrainosus
CPT/HCPCS: 36415; 71045; 74181; 76705; 80053; 80061; 80076; 81003; 83036; 83690; 83735; 84443; 85025; 87081; 88304; 93005; 94640; 94664; 96374; 96375; 99285-25

== ENCOUNTER 2019-05-28 23:05 | Emergency (ER) | payer OTHER ==
[2019-05-29 00:15] LABS: ADD MAN DIFF? NO
[2019-05-29] MEDS: morphine 4 MG/ML VIAL IV (00:16)
[2019-05-29] MEDS: ONDANSETRON 4 MG INJ IV (00:17)
[2019-05-29 00:19] LABS: BASOPHILS % 0.3 % (0.0-2.0); EOSINOPHILS # 0.6 10^3/ul (0.0-0.5); EOSINOPHILS % 9.1 % (0.0-7.0); HEMOGLOBIN 11.5 g/dl (12.0-16.0); LYMPHOCYTES % 29.6 % (15.0-51.0); MEAN CORPUSCULAR HEMOGLOBIN 29.8 pg (29.0-33.0); MEAN CORPUSCULAR HGB CONC 31.9 g/dl (32.0-37.0); MEAN CORPUSCULAR VOLUME 93.3 fl (82.0-101.0); MEAN PLATELET VOLUME 9.9 fl (7.4-10.4); MONOCYTE # 0.4 10^3/ul (0.3-0.9); MONOCYTES % 6.3 % (0.0-11.0); NEUTROPHIL # 3.6 10^3/ul (1.6-7.5); NEUTROPHILS % 54.6 % (39.0-77.0); PLATELET COUNT 298 10^3/UL (140-415); RED BLOOD COUNT 3.86 10^6/ul (4.20-5.40); RED CELL DISTRIBUTION WIDTH 13.3 % (11.5-14.5)
[2019-05-29 00:19] LABS: WHITE BLOOD COUNT 6.7 10^3/ul (4.8-10.8)
[2019-05-29] MEDS: SOD CHLORIDE 0.9% 1,000 ML IV (00:22)
[2019-05-29 00:25] LABS: ADD UMIC YES; UR AMORPHOUS CRYSTAL FEW /HPF (NONE SEEN); UR ASCORBIC ACID NEGATIVE (NEGATIVE); UR BILIRUBIN (Dip) NEGATIVE (NEGATIVE); UR BLOOD (Dip) NEGATIVE (NEGATIVE); UR CLARITY CLOUDY (CLEAR); UR COLOR YELLOW (YELLOW); UR GLUCOSE (Dip) NEGATIVE (NEGATIVE); UR KETONES (Dip) NEGATIVE (NEGATIVE); UR LEUKOCYTE ESTERASE (Dip) NEGATIVE Leu/ul (NEGATIVE); UR NITRITE (Dip) NEGATIVE (NEGATIVE); UR RBC 1 /HPF (0-5); UR SPECIFIC GRAVITY (Dip) 1.014 (1.003-1.030); UR TOTAL PROTEIN (Dip) NEGATIVE (NEGATIVE); UR UROBILINOGEN (Dip) NEGATIVE (NEGATIVE); UR WBC 1 /HPF (0-5)
[2019-05-29 00:35] LABS: ALANINE AMINOTRANSFERASE 44 IU/L (13-69); ALBUMIN 4.1 g/dl (3.3-4.9); ALBUMIN/GLOBULIN RATIO 1.32; ALKALINE PHOSPHATASE 70 IU/L (42-121); ANION GAP 10 (5-13); ASPARTATE AMINO TRANSFERASE 26 IU/L (15-46); BILIRUBIN,INDIRECT 0.3 mg/dl (0-1.1); BILIRUBIN,TOTAL 0.3 mg/dl (0.2-1.3); BLOOD UREA NITROGEN 16 mg/dl (7-20); CALCIUM 9.3 mg/dl (8.4-10.2); CARBON DIOXIDE 26 mmol/L (21-31); CHLORIDE 110 mmol/L (97-110); CREATININE 0.64 mg/dl (0.44-1.00); Estimated GFR > 60 mL/min (>60); GLUCOSE 108 mg/dl (70-220); LIPASE 71 U/L (23-300); POTASSIUM 3.5 mmol/L (3.5-5.1); SODIUM 146 mmol/L (135-144); TOTAL PROTEIN 7.2 g/dl (6.1-8.1)
[2019-05-29] MEDS: SOD CHLORIDE 0.9% 100 ML (00:59)
[2019-05-29] MEDS: IOHEXOL 300MG/ML 150 ML BTL (00:59)
[2019-05-29] MEDS: HYDROmorphONE 1 MG/ML SYG IV (02:16)
== END 2019-05-29 05:08 | disposition home or self-care (01) ==
LOC: E/R 23:05
DX: L76.82 Other postprocedural complications of skin and subcutaneous tissue (principal); R40.2142 Coma scale, eyes open, spontaneous, at arrival to emergency department; R40.2252 Coma scale, best verbal response, oriented, at arrival to emergency department; R40.2362 Coma scale, best motor response, obeys commands, at arrival to emergency department; J45.909 Unspecified asthma, uncomplicated; Z87.891 Personal history of nicotine dependence
CPT/HCPCS: 36415; 74177; 80053; 81001; 83690; 85025; 96374; 96375; 99285-25